=== PATIENT | female | born 1950 | race Caucasian/White ===

== ENCOUNTER 2022-04-27 16:37 | Emergency (ER) | payer OTHER ==
[~2022-04-27] VITALS: Ht 162.6 cm; Wt 79.4 kg
== END 2022-04-27 21:51 | disposition home or self-care (01) ==
LOC: ER 16:37
DX: J20.8 Acute bronchitis due to other specified organisms (principal)

== ENCOUNTER 2024-11-17 03:29 | Emergency (ER) | payer OTHER ==
[~2024-11-17] VITALS: Ht 162.6 cm; Wt 77.1 kg
[2024-11-17] MEDS ORDERED: LIPITOR20 MG (03:50)
[2024-11-17] MEDS ORDERED: KETOROLAC TROMETHAMINE 30 MG VIAL IV STA (05:13)
[2024-11-17] MEDS ORDERED: HYOSCYAMINE SULFATE 0.125 MG TAB.SUBL SL STA (05:13)
[2024-11-17] MEDS ORDERED: 0.9 % SODIUM CHLORIDE 1,000 ML IV STA (05:14)
[2024-11-17] MEDS ORDERED: ONDANSETRON HCL 2 MG/ML VIAL IV STA (05:15)
[2024-11-17] MEDS ORDERED: MORPHINE SULFATE 4 MG/ML VIAL IV STA (05:15)
[2024-11-17] MEDS ORDERED: HYOSCYAMINE SULFATE 0.125 MG TAB.SUBL ONE (05:17)
[2024-11-17] MEDS ORDERED: ONDANSETRON HCL 2 MG/ML VIAL ONE (05:17)
[2024-11-17] MEDS ORDERED: KETOROLAC TROMETHAMINE 30 MG VIAL ONE (05:17)
== END 2024-11-17 06:40 | disposition home or self-care (01) ==
LOC: ER 03:29
DX: N21.0 Calculus in bladder (principal); Z87.442 Personal history of urinary calculi; K57.30 Diverticulosis of large intestine without perforation or abscess without bleeding